=== PATIENT | female | born 1980 | race Caucasian/White ===

== ENCOUNTER → 2019-05-16 | Day surgery (SDC) | payer MEDICAID ==
[~2019-05-16] VITALS: Ht 170.2 cm; Wt 56.2 kg
[2019-05-16] VITALS (18 sets, daily range): BP systolic 88–116; BP diastolic 40–73
[~2019-05-16] MED LIST: DiphenhydrAMINE 50mg/ml Inj IVP PRN; Docusate 100mg cap ORAL SCH; HYDROcodone/Acetamin 5/325 tab ORAL PRN; Ketorolac 30mg Inj IV PRN; Ketorolac 30mg Inj ONE; LR 1000ml 1,000 ML IVLG SCH; LR 1000ml ONE; Lidocaine 1% MPF 10mg/ml 5ml ONE; Meperidine 50mg/ml Inj(FOR RIGORS ONLY) IVP PRN; Methylergonovine 0.2mg/ml Inj IM ONE; Metoclopramide 10mg/2ml Inj IVP PRN; Midazolam 2mg/2ml Inj ONE; Misoprostol 100mcg tab MISC ONE; Morphine Sulfate 2mg/ml Inj(IV/IM USE ONLY) IVP ONE; NS Irrig 1000ml ONE; Oxytocin 10 units/vial ONE; Propofol 200mg/20ml IV ONE; Sterile Water Irrig 1000ml IRRIG ONE; ceFAZolin 2gm/50ml Premix 50 ML IVPB ONE; ceFAZolin sod 2 GM in D5W 110 ML IVPB ONE; cefOXitin 1gm Inj ONE; fentaNYL 100 mcg/2 mL IV ONE
--- NOTE | 2019-05-16 07:50 | NUR ---
ED Nurse Note: PT FROM HOME CAME IN DUE TO VAGINAL BLEEDING ,BRIGHT RED IN LARGE AMOUNTS WITH CLOTS SINCE 0300AM THIS MORNING. PT STATES BLEEDING STARTED 2 DAYS AGO. REPORTS MILD ABD CRAMPING. HX OF . AAO X4, AMBULATORY WITH NON LABORED BREATHING.
--- NOTE | 2019-05-16 07:51 | Emergency Room Report ---
History of Present Illness General Chief Complaint: Complications Source: Patient Present Illness HPI 38-year-old female G2, P0 who presents with vaginal bleeding. Patient reports ultrasound 2 days ago showing empty gestational sac. She reported waking up this morning at 3 AM with abdominal cramping and heavy vaginal bleeding. She reported passing large clots. She denies lightheadedness, near syncope. Last menstrual was February 18. Allergies: Coded Allergies: No Known Allergies (Unverified , 05/16/19) Patient History Last Menstrual Period: 02/18/2019 Now: Yes : 2 Para: 0 Nursing Documentation-[facility] Past Medical History: No Stated History Physical Exam Vital Signs Date Time Temp Pulse Resp B/P (MAP) Pulse Ox O2 Delivery O2 Flow Rate FiO2 05/16/19 07:40 97.5 76 18 107/73 (84) 99 Room Air Sp02 EP Interpretation: reviewed General Appearance: well appearing, non-toxic, moderate distress Head: normocephalic, atraumatic Eyes: bilateral eye normal inspection ENT: hearing grossly normal, EOM grossly intact, moist mucus membranes Neck: supple Respiratory: lungs clear, normal breath sounds, no respiratory distress, speaking full sentences Cardiovascular #1: regular rate, rhythm, normal capillary refill Cardiovascular #2: 2+ radial (R), 2+ radial (L) Gastrointestinal: soft, non-distended, tenderness - Lower abdominal Rectal: deferred Genitourinary: no CVA tenderness, os closed, other - Heavy vaginal bleeding in vault. Evacuated large clots, continued heavy bright red blood flow from cervical opening Musculoskeletal: moves extm spontaneously, no lower extremity edema Neurologic: grossly normal Psychiatric: mood/affect normal Skin: warm/dry, normal turgor Medical Decision Making Diagnostic Impression: Primary Impression: Complication of Additional Impressions: Inevitable Vaginal bleeding Anemia Acute hypotension ER Course 38-year-old female G2, P0 who presents with vaginal bleeding. Patient reports ultrasound 2 days ago showing empty gestational sac. She reported waking up this morning at 3 AM with abdominal cramping and heavy vaginal bleeding. She reported passing large clots. She denies lightheadedness, near syncope. Last menstrual was February 18. Patient found to have heavy vaginal bleeding in vault. Actively bleeding greater than 10 pads and passing large clots. Differential includes incomplete , complete , inevitable , uncontrolled vaginal bleeding, menorrhagia We will perform lab testing and ultrasound. Laboratory Tests Test 05/16/19 08:00 05/16/19 11:35 White Blood Count 9.7 K/UL (4.8-10.8) 11.5 K/UL (4.8-10.8) H Red Blood Count 3.90 M/UL (4.20-5.40) L 3.12 M/UL (4.20-5.40) L Hemoglobin 11.9 G/DL (12.0-16.0) L 9.7 G/DL (12.0-16.0) L Hematocrit 34.9 % (37.0-47.0) L 28.0 % (37.0-47.0) L Mean Corpuscular Volume 89 FL (80-99) 90 FL (80-99) Mean Corpuscular Hemoglobin 30.5 PG (27.0-31.0) 30.9 PG (27.0-31.0) Mean Corpuscular Hemoglobin Concent 34.1 G/DL (32.0-36.0) 34.5 G/DL (32.0-36.0) Red Cell Distribution Width 11.0 % (11.6-14.8) L 11.1 % (11.6-14.8) L Platelet Count 221 K/UL (150-450) 194 K/UL (150-450) Mean Platelet Volume 7.5 FL (6.5-10.1) 7.2 FL (6.5-10.1) Neutrophils (%) (Auto) 73.4 % (45.0-75.0) 78.3 % (45.0-75.0) H Lymphocytes (%) (Auto) 17.7 % (20.0-45.0) L 13.9 % (20.0-45.0) L Monocytes (%) (Auto) 7.0 % (1.0-10.0) 7.0 % (1.0-10.0) Eosinophils (%) (Auto) 1.4 % (0.0-3.0) 0.5 % (0.0-3.0) Basophils (%) (Auto) 0.5 % (0.0-2.0) 0.3 % (0.0-2.0) Urine Color Red Urine Appearance Cloudy Urine pH 6 (4.5-8.0) Urine Specific [place] 1.020 (1.005-1.035) Urine Protein 4+ (NEGATIVE) H Urine Glucose (UA) Negative (NEGATIVE) Urine Ketones Negative (NEGATIVE) Urine Blood 4+ (NEGATIVE) H Urine Nitrite Negative (NEGATIVE) Urine Bilirubin Negative (NEGATIVE) Urine Urobilinogen Normal MG/DL (0.0-1.0) Urine Leukocyte Esterase Negative (NEGATIVE) Urine RBC Tntc /HPF (0 - 2) H Urine WBC 0-2 /HPF (0 - 2) Urine Squamous Epithelial Cells Occasional /LPF Urine Bacteria Occasional /HPF (NONE) Urine HCG, Qualitative Positive (NEGATIVE) Sodium Level 135 MMOL/L (136-145) L Potassium Level 4.3 MMOL/L (3.5-5.1) Chloride Level 104 MMOL/L (98-107) Carbon Dioxide Level 25 MMOL/L (21-32) Anion Gap 7 mmol/L (5-15) Blood Urea Nitrogen 12 mg/dL (7-18) Creatinine 0.8 MG/DL (0.55-1.30) Estimate Glomerular Filtration Rate > 60 mL/min (>60) Glucose Level 106 MG/DL (74-106) Calcium Level 8.9 MG/DL (8.5-10.1) Total Bilirubin 0.3 MG/DL (0.2-1.0) Aspartate Amino Transferase (AST) 14 U/L (15-37) L Alanine Aminotransferase (ALT) 19 U/L (12-78) Alkaline Phosphatase 46 U/L (46-116) Total Protein 7.5 G/DL (6.4-8.2) Albumin 3.6 G/DL (3.4-5.0) Globulin 3.9 g/dL Albumin/Globulin Ratio 0.9 (1.0-2.7) L Lipase 248 U/L (73-393) Human Chorionic Gonadotropin, Quant 2801 mIU/mL (1-6) H Lab Results Impression Initial lab testing noted anemia 11.9. Repeat CBC decreased to 9.7 at 3 hours later. Chemistry within normal limits Urine positive for , beta quantitative 2801, unknown prior to compare to. Reevaluation Time: 11:19 Last Vital Signs Date Time Temp Pulse Resp B/P (MAP) Pulse Ox O2 Delivery O2 Flow Rate FiO2 05/16/19 10:00 98.1 59 15 116/65 100 Room Air Last Vital Signs Date Time Temp Pulse Resp B/P (MAP) Pulse Ox O2 Delivery O2 Flow Rate FiO2 05/16/19 07:40 97.5 76 18 107/73 (84) 99 Room Air Status: worsened Reevaluation Impression Patient's care discussed with LUMP INSPECTOR Dr. Lane Patient pending admission to go to the OR for heavy vaginal bleeding with miscarraige Disposition: ADMITTED INPATIENT Condition: Serious Manohar Rainey M.D. May 16, 2019 07:51
--- NOTE | 2019-05-16 08:07 | NUR ---
ED Nurse Note: BLOOD/URINE COLLECTED THEN SENT.
[2019-05-16 08:14] LABS: BASOPHILS % (AUTO) 0.5 % (0.0-2.0); EOSINOPHILS % (AUTO) 1.4 % (0.0-3.0); HEMATOCRIT 34.9 % (37.0-47.0); HEMOGLOBIN 11.9 G/DL (12.0-16.0); LYMPHOCYTES % (AUTO) 17.7 % (20.0-45.0); MEAN CORPUSCULAR VOLUME 89 FL (80-99); NEUTROPHILS % (AUTO) 73.4 % (45.0-75.0); PLATELET COUNT 221 K/UL (150-450); WHITE BLOOD COUNT 9.7 K/UL (4.8-10.8)
--- NOTE | 2019-05-16 08:18 | NUR ---
ED Nurse Note: US STAFF AT THE BED SIDE.
[2019-05-16 08:35] LABS: APPEARANCE,URINE CLOUDY; BILIRUBIN, URINE NEGATIVE (NEGATIVE); GLUCOSE, URINE (UA) NEGATIVE (NEGATIVE); KETONES,URINE NEGATIVE (NEGATIVE); LEUKOCYTE ESTERASE ,URINE NEGATIVE (NEGATIVE); NITRITE,URINE NEGATIVE (NEGATIVE); PH,URINE 6 (4.5-8.0); PROTEIN,URINE 4+ (NEGATIVE); UROBILINOGEN,URINE NORMAL MG/DL (0.0-1.0)
[2019-05-16 08:36] LABS: COLOR,URINE RED
[2019-05-16 08:39] LABS: ANION GAP 7 mmol/L (5-15); BLOOD UREA NITROGEN 12 mg/dL (7-18); CALCIUM 8.9 MG/DL (8.5-10.1); CARBON DIOXIDE 25 MMOL/L (21-32); CHLORIDE 104 MMOL/L (98-107); CREATININE 0.8 MG/DL (0.55-1.30); POTASSIUM 4.3 MMOL/L (3.5-5.1); SODIUM 135 MMOL/L (136-145)
[2019-05-16 08:44] LABS: ALANINE AMINOTRANSFERASE 19 U/L (12-78); ALBUMIN 3.6 G/DL (3.4-5.0); ALBUMIN/GLOBULIN RATIO 0.9 (1.0-2.7); ALKALINE PHOSPHATASE 46 U/L (46-116); ASPARTATE AMINO TRANSFERASE 14 U/L (15-37); BILIRUBIN,TOTAL 0.3 MG/DL (0.2-1.0)
--- NOTE | 2019-05-16 09:40 | NUR ---
ED Nurse Note: RN ASSISTED DR SINGLETARY AT THE BED SIDE FOR VAGINAL INTERNAL EXAMINATION. PT TOLERATED WELL. NOTED LARGE BLOOD CLOTS FROM VAGINA.
--- NOTE | 2019-05-16 09:55 | NUR ---
HAND-OFF: Report given to ALBERTO VALDEZ.
--- NOTE | 2019-05-16 10:00 | NUR ---
ED Nurse Note: Patient connected to the trauma surgeon, bed in lowest position. Patient resting comfortabley, VSS, no s/s of acute distress. Patient states she has no pain. Will continue to monitor.
--- NOTE | 2019-05-16 10:09 | Diagnostic Imaging Report ---
EXAM: US First Trimester, Transabdominal US , Transvaginal CLINICAL HISTORY: ABD PAIN TECHNIQUE: Real-time transabdominal and transvaginal obstetrical ultrasound of the maternal pelvis and a first trimester with image documentation. Transvaginal imaging was used for better evaluation of the fetus and adnexa. COMPARISON: No relevant prior studies available. FINDINGS: Gestation: Intrauterine gestational sac with mean sac diameter of 3.6 cm, equivalent to 8 weeks 3 days gestation. No pole or yolk sac identified. Placenta/amniotic fluid: Cannot be adequately evaluated due to the early gestational age. Uterus/cervix: Uterus measures 8.9 x 6.5 x 4.4 cm. Endometrial stripe thickness of mm. The cervix appears closed. . Ovaries: Right ovary not visualized with transabdominal ultrasound but was seen with transvaginal ultrasound and measures 2.0 x 2.0 x 1.7 cm with normal Doppler blood flow. Left ovary was not visualized, obscured by bowel gas. Free fluid: Trace free fluid in the pelvis. IMPRESSION: 1. Intrauterine gestational sac with mean sac diameter of 3.6 cm, equivalent to 8 weeks 3 days gestation. No pole or yolk sac identified. This is highly suspicious for nonviable gestation. Recommend short interval follow-up sonography. 2. Trace free fluid in the pelvis.
--- NOTE | 2019-05-16 11:10 | NUR ---
ED Nurse Note: Patient has been saturating sanitary pads over the last hour. Patient became hypotensive and HR elevated. Dr. Rainey notified of each saturated pad and of the trending VS, patient placed in Trendelenberg position, monitored closely. NS has been infusing. Patient states she feels okay, no complaints of dizziness or lightheadedness.
--- NOTE | 2019-05-16 11:20 | NUR ---
ED Nurse Note: Patient no longer hypotensive or tachycardic. Patient doing well, no adverse s/s reported. Saturated sanitary pads are decreasing. OR aware and planning to transfer patient to OR for procedure.
[2019-05-16 12:12] LABS: BASOPHILS % (AUTO) 0.3 % (0.0-2.0); EOSINOPHILS % (AUTO) 0.5 % (0.0-3.0); HEMOGLOBIN 9.7 G/DL (12.0-16.0); LYMPHOCYTES % (AUTO) 13.9 % (20.0-45.0); MEAN CORPUSCULAR VOLUME 90 FL (80-99); NEUTROPHILS % (AUTO) 78.3 % (45.0-75.0); PLATELET COUNT 194 K/UL (150-450); RED BLOOD COUNT 3.12 M/UL (4.20-5.40); RED CELL DISTRIBUTION WIDTH 11.1 % (11.6-14.8); WHITE BLOOD COUNT 11.5 K/UL (4.8-10.8)
--- NOTE | 2019-05-16 12:50 | NUR ---
ED Nurse Note: ACADEMIC COUNSELOR and MD in ED to transfer patient. Patient VS stable, all belongings with patient.
--- NOTE | 2019-05-16 13:21 | Pre-Procedure Note/Attestation ---
Pre-Procedure Note/Attestation Complete Prior to Procedure Planned Procedure: not applicable Procedure Narrative: Dilatation & Curretage Indications for Procedure Pre-Operative Diagnosis: Missed Heavy Vaginal Bleeding Attestation I attest that I discussed the nature of the procedure; its benefits; risks and complications; and alternatives (and the risks and benefits of such alternatives ), prior to the procedure, with the patient (or the patient's legal clearance representative). I attest that, if there was a reasonable possibility of needing a blood transfusion, the patient (or the patient's legal clearance representative) was given the [facility] standardized written summary, pursuant to the [place] Blood Safety Act ([place] Health and Safety Code # 1645, as amended). I attest that I re-evaluated the patient just prior to the surgery and that there has been no change in the patient's H&P, except as documented below: Kelechi Lane MD May 16, 2019 13:21
--- NOTE | 2019-05-16 13:52 | Anethesia Preoperative Eval ---
Anesthesia Pre-op PMH/ROS General Date of Evaluation: May 16, 2019 Time of Evaluation: 12:50 Anesthesiologist: Jyoti ASA Score: ASA 2 Mallampati Score Class I : Soft palate, uvula, fauces, pillars visible Class II: Soft palate, uvula, fauces visible Class III: Soft palate, base of uvula visible Class IV: Only hard plate visible Mallampati Classification: Class II Surgeon: Domingo Diagnosis: Incomplete Surgical Procedure: Suction D&C Anesthesia History: none Family History: no anesthesia problems Allergies: Coded Allergies: No Known Allergies (Unverified , 05/16/19) Medications: see eMAR Patient NPO?: Yes NPO Date: May 16, 2019 Past Medical History Cardiovascular: Denies: HTN, CAD, OR, valve dz, arrhythmia, other Pulmonary: Denies: asthma, COPD, [place], other Gastrointestinal/Genitourinary: Reports: GERD - mild; Denies: CRI, ESRD, other Neurologic/Psychiatric: Denies: dementia, CVA, depression/anxiety, TIA, other Endocrine: Denies: DM, hypothyroidism, steroids, other HEENT: Denies: cataract (L), cataract (R), glaucoma, ALGAACIQ (L), ALGAACIQ (R), other Hematology/Immune: Denies: anemia, DVT, bleeding disorder, other Musculoskeletal/Integumentary: Denies: OA, RA, DJD, DDD, edema, other PMH Narrative: as above PSxH Narrative: Septoplasty, D&C Anesthesia Pre-op Phys. Exam Physician Exam Last Vital Signs Date Time Temp Pulse Resp B/P (MAP) Pulse Ox O2 Delivery O2 Flow Rate FiO2 05/16/19 11:53 92/66 05/16/19 11:20 85 15 05/16/19 10:00 98.1 100 Room Air Constitutional: NAD Neurologic: CN 2-12 intact Cardiovascular: RRR, no M/R/G Respiratory: CTA Gastrointestinal: S/NT/ND Airway Exam Mallampati Score: Class II MO: full Neck: flexible ROM: full Teeth: intact Dentures: no upper, no lower Anesthesia Pre-op A/P Labs Hematology Test 05/16/19 08:00 05/16/19 11:35 White Blood Count 9.7 K/UL (4.8-10.8) 11.5 K/UL (4.8-10.8) H Red Blood Count 3.90 M/UL (4.20-5.40) L 3.12 M/UL (4.20-5.40) L Hemoglobin 11.9 G/DL (12.0-16.0) L 9.7 G/DL (12.0-16.0) L Hematocrit 34.9 % (37.0-47.0) L 28.0 % (37.0-47.0) L Mean Corpuscular Volume 89 FL (80-99) 90 FL (80-99) Mean Corpuscular Hemoglobin 30.5 PG (27.0-31.0) 30.9 PG (27.0-31.0) Mean Corpuscular Hemoglobin Concent 34.1 G/DL (32.0-36.0) 34.5 G/DL (32.0-36.0) Red Cell Distribution Width 11.0 % (11.6-14.8) L 11.1 % (11.6-14.8) L Platelet Count 221 K/UL (150-450) 194 K/UL (150-450) Mean Platelet Volume 7.5 FL (6.5-10.1) 7.2 FL (6.5-10.1) Neutrophils (%) (Auto) 73.4 % (45.0-75.0) 78.3 % (45.0-75.0) H Lymphocytes (%) (Auto) 17.7 % (20.0-45.0) L 13.9 % (20.0-45.0) L Monocytes (%) (Auto) 7.0 % (1.0-10.0) 7.0 % (1.0-10.0) Eosinophils (%) (Auto) 1.4 % (0.0-3.0) 0.5 % (0.0-3.0) Basophils (%) (Auto) 0.5 % (0.0-2.0) 0.3 % (0.0-2.0) Chemistry Test 05/16/19 08:00 Sodium Level 135 MMOL/L (136-145) L Potassium Level 4.3 MMOL/L (3.5-5.1) Chloride Level 104 MMOL/L (98-107) Carbon Dioxide Level 25 MMOL/L (21-32) Anion Gap 7 mmol/L (5-15) Blood Urea Nitrogen 12 mg/dL (7-18) Creatinine 0.8 MG/DL (0.55-1.30) Estimat Glomerular Filtration Rate > 60 mL/min (>60) Glucose Level 106 MG/DL (74-106) Calcium Level 8.9 MG/DL (8.5-10.1) Total Bilirubin 0.3 MG/DL (0.2-1.0) Aspartate Amino Transf (AST/SGOT) 14 U/L (15-37) L Alanine Aminotransferase (ALT/SGPT) 19 U/L (12-78) Alkaline Phosphatase 46 U/L (46-116) Total Protein 7.5 G/DL (6.4-8.2) Albumin 3.6 G/DL (3.4-5.0) Globulin 3.9 g/dL Albumin/Globulin Ratio 0.9 (1.0-2.7) L Lipase 248 U/L (73-393) Human Chorionic Gonadotropin, Quant 2801 mIU/mL (1-6) H Urine Test Test 05/16/19 08:00 Urine HCG, Qualitative Positive (NEGATIVE) Risk Assessment & Plan Assessment: ASA 2 Plan: GA with LMA Status Change Before Surgery: No Pre-Antibiotics Drug: Cefoxitin 1gr Given Within 1 Hr of Incision: Yes Time Given: 13:20 Thomas Montes MD May 16, 2019 13:52
--- NOTE | 2019-05-16 13:55 | Brief Operative Note ---
Immediate Post Operative Note Operative Note Pre-op Diagnosis: Missed Heavy Vaginal Bleeding Procedure: Dilatation & Curettage Post-op Diagnosis: same as pre-op Surgeon: Niranjan Lane MD Anesthesia: general Specimen: yes - POC Complications: none Condition: stable Fluids: LR Estimated Blood Loss: volume - 500 cc blood clots in the vault Drains: none Implant(s) used?: No Kelechi Lane MD May 16, 2019 13:55
--- NOTE | 2019-05-16 14:11 | Immediate Post-Op Evaluation ---
Immediate Post-Op Evalulation Immediate Post-Op Evalulation Procedure: Suction D&C Date of Evaluation: May 16, 2019 Time of Evaluation: 14:10 IV Fluids: 1000 Blood Products: none Estimated Blood Loss: 500 Urinary Output: 150 Blood Pressure Systolic: 113 Blood Pressure Diastolic: 62 Pulse Rate: 72 Respiratory Rate: 20 O2 Sat by Pulse Oximetry: 99 Temperature (Fahrenheit): 98.3 Pain Score (1-10): 2 Nausea: No Vomiting: No Complications none Patient Status: awake, patent, none Hydration Status: adequate Thomas Montes MD May 16, 2019 14:11
--- NOTE | 2019-05-16 14:25 | 48 Hour Post Anesthesia Eval ---
Post Anesthesia Evaluation Procedure: Suction D&C Date of Evaluation: May 16, 2019 Time of Evaluation: 14:24 Blood Pressure Systolic: 112 0: 72 Pulse Rate: 68 Respiratory Rate: 20 Temperature (Fahrenheit): 97.6 O2 Sat by Pulse Oximetry: 98 Airway: patent Nausea: No Vomiting: No Pain Intensity: 2 Hydration Status: adequate Cardiopulmonary Status: stable Mental Status/LOC: patient returned to baseline Follow-up Care/Observations: n/a Post-Anesthesia Complications: none Follow-up care needed: ready to discharge Thomas Montes MD May 16, 2019 14:25
[2019-05-16 14:40] LABS: BASOPHILS % (AUTO) 0.4 % (0.0-2.0); EOSINOPHILS % (AUTO) 0.7 % (0.0-3.0); HEMOGLOBIN 8.3 G/DL (12.0-16.0); LYMPHOCYTES % (AUTO) 15.4 % (20.0-45.0); MEAN CORPUSCULAR VOLUME 90 FL (80-99); MONOCYTES % (AUTO) 8.9 % (1.0-10.0); NEUTROPHILS % (AUTO) 74.6 % (45.0-75.0); PLATELET COUNT 161 K/UL (150-450); RED BLOOD COUNT 2.68 M/UL (4.20-5.40); RED CELL DISTRIBUTION WIDTH 10.8 % (11.6-14.8); WHITE BLOOD COUNT 8.4 K/UL (4.8-10.8)
[2019-05-16 14:53] LABS: ANION GAP 6 mmol/L (5-15); BLOOD UREA NITROGEN 8 mg/dL (7-18); CALCIUM 7.7 MG/DL (8.5-10.1); CARBON DIOXIDE 22 MMOL/L (21-32); CHLORIDE 109 MMOL/L (98-107); CREATININE 0.8 MG/DL (0.55-1.30); POTASSIUM 3.6 MMOL/L (3.5-5.1); SODIUM 137 MMOL/L (136-145)
--- NOTE | 2019-05-16 16:00 | History and Physical Report ---
DATE OF ADMISSION: 05/16/2019 CHIEF COMPLAINT/REASON FOR HOSPITALIZATION: The patient is a 38-year-old lady, admitted with vaginal bleeding. HISTORY OF PRESENT ILLNESS: The patient's last menstrual period February 18 and at 4:30 this morning, she presented with vaginal bleeding. She is being seen by Dr. Lane, Gynecology was taken to the OR for likely incomplete . The patient is 1, para 0, with a prior therapeutic . There is no fever, chills, nausea, vomiting, abdominal pain. She is generally in good health. ALLERGIES: None known. SURGICAL HISTORY: None. SYSTEM REVIEW: Complete system review was done. All systems negative except for the present illness. PHYSICAL EXAMINATION: GENERAL: The patient is alert lady, in no acute distress. VITAL SIGNS: Temperature 98.1, pulse 85, respirations 15, blood pressure 96/60. HEAD, EYES, EARS, NOSE, AND THROAT: Sclerae are nonicteric. Ocular motions intact in all directions. Oral mucosa moist. NECK: No adenopathy or thyroid enlargement. LUNGS: Clear. HEART: Regular rhythm. ABDOMEN: Soft. No focal tenderness. EXTREMITIES: No edema, cyanosis or clubbing. STEREOTYPE CASTER EXAM: Per Dr. Lane. PERTINENT LABORATORY DATA: Show hemoglobin 11.9, 800, 9.7 and 1135. Chemistries normal. UA, 0 to 2 white cells per high-power field. IMPRESSION: 1. Vaginal bleeding, likely incomplete . 2. Anemia secondary to blood loss. 3. Otherwise normal History and Physical. PLAN: The patient is stable for going to the OR and stable postoperatively discharge. Case was discussed with Dr. Lane. Juliano Covarrubias M.D. DR: MIGUEL JOB#: [id number] CC:
--- NOTE | 2019-05-16 20:15 | Operative Note - Dictated ---
DATE OF OPERATION: 05/16/2019 PREOPERATIVE DIAGNOSES: Missed and heavy vaginal bleeding. POSTOPERATIVE DIAGNOSES: Missed and heavy vaginal bleeding. PROCEDURE: and curettage. SURGEON: Kelechi Lane M.D. ANESTHESIA: General. ESTIMATED BLOOD LOSS: 500 mL. Blood clots noted in the vaginal . COMPLICATIONS: None. CONDITION: Stable. DESCRIPTION OF PROCEDURE: The patient was taken to the operating room. General anesthesia was administered by the anesthesiologist. She was placed in dorsal lithotomy position. She was prepped and draped in the usual sterile fashion. Red Soto catheter was placed inside the bladder. Clear urine was obtained. The catheter was then discontinued. A weighted speculum was placed inside the vagina. A large amount of blood was noted in the vaginal vault. The cervix was found to be dilated. The cervix was grasped with single-tooth tenaculum. Using appropriate size suction catheter, suction of uterine cavity was performed and tissue obtained was sent to pathology. Curettage of the uterine cavity was also performed and the tissue obtained was sent to pathology. All instruments were then removed from the vagina. Sponge and instrument counts were correct x3 at the end of the procedure. Uterus became firm with mild lochia. The patient tolerated the procedure well and was transferred to recovery room in a stable condition. Kelechi Lane M.D. DR: ALVINA JOB#: [id number] CC:
--- NOTE | 2019-05-16 20:30 | History and Physical Report ---
DATE OF ADMISSION: 05/16/2019 HISTORY OF PRESENT ILLNESS: This patient is a 38-year-old female who presented to the emergency room with complaint of heavy vaginal bleeding. She describes the bleeding as being heavy, started 4 hours prior to this admission. The patient was seen at another facility two days prior to this admission. She apparently underwent an ultrasound examination which revealed gestational sac, no heart tone. The patient was told to have a pending miscarriage. She describes this bleeding as heavy with passage of blood clots. PAST CONTACT CENTER ASSOCIATE HISTORY: Significant for termination x1. PAST MEDICAL HISTORY: Unremarkable. PAST SURGICAL HISTORY: Abdominoplasty. MEDICATIONS: None. PHYSICAL EXAMINATION: GENERAL: She is afebrile with stable vital signs. HEENT: Normocephalic and atraumatic. CHEST: Clear to auscultation x2. CARDIOVASCULAR: S1 and S2. ABDOMEN: Soft, nontender, nondistended. EXTREMITIES: No cyanosis. No clubbing. LABORATORY AND DIAGNOSTIC DATA: The patient was examined in the emergency room, was found to have heavy vaginal bleeding with passage of blood clots. She underwent an ultrasound examination which revealed a gestational sac. No pole. No cardiac activity. Quantitative beta-HCG is around 2000. ASSESSMENT AND PLAN: This is a 38-year-old female with missed , heavy vaginal bleeding. The patient received Methergine and Cytotec in the emergency room to slow down her bleeding. We discussed with the patient regarding findings. We discussed with the patient regarding dilatation and curettage. Risks and possible complications including but not limited to bleeding, infection, injury to the uterus, bladder, and other vital organs have been answered to her fully. She has been counseled regarding possibility of blood transfusion and risks associated with that have been explained to her fully as well. She understands and agrees with management. She is to undergo dilatation and curettage. Kelechi Lane M.D. DR: Carolyn JOB#: [id number] CC:
--- NOTE | 2019-05-18 16:26 | NUR ---
CASE MANAGEMENT: INITIAL REVIEW 38YR OLD FEMALE FROM HOME CC: COMPLICATION SI: MISCARRIAGE AND BLEEDING . ACUTE HYPOTENSION . 97.6 76 18 107/73 99% ON RA IS: IVF NS BOLUS X1 IV MORPHINE SULFATE US TRANSVAGINAL TO SURG FOR D&C : SURGERY DCP: HOME WHEN MEDICALLY STABLE
== END | disposition home or self-care (01) ==
LOC: EMR 08:47 → UNDOADMIN 11:32 → SDSOVERFLO 11:32 → EDBEDREQ 12:56 → EDBEDREQSVC 12:56 → SUR 13:07
DX: O02.1 Missed abortion (principal); D50.0 Iron deficiency anemia secondary to blood loss (chronic); I95.9 Hypotension, unspecified; K21.9 Gastro-esophageal reflux disease without esophagitis
CPT/HCPCS: 36415; 59812; 76801; 76830; 80048; 80053; 81003; 81025; 83690; 84702; 85025; 86850; 86900; 86901; 86920; 96361; 96372; 96374; J0690; J0694; J1885; J2250; J2270; J2405; J2590; J2704; J3010; J7030; J7120; Z7502; Z7512; 94003; 94150; 99285